=== PATIENT | female | born 1940 | race Caucasian/White ===

== ENCOUNTER 2017-07-13 20:29 | Emergency (ER) | payer MEDICARE, BC ==
--- NOTE | 2017-07-15 07:58 | ER ---
DATE SEEN: 07/13/2017 TIME SEEN: 2030 hours. CHIEF COMPLAINT: Sore left eye. HISTORY OF PRESENT ILLNESS: A 77-year-old female who noted the left eye to have blood. This happened suddenly today when she felt like her eye had goop or matter, and when she looked in the mirror, she saw blood, especially on the left side. No trauma and no recent straining. Denies any double vision, headaches, nausea, vomiting. She had cataract surgery about 2 months ago on that eye. REVIEW OF SYSTEMS: All other systems were negative. PAST MEDICAL HISTORY: Hypertension. MEDICATIONS: She takes Cozaar and aspirin twice a week. PHYSICAL EXAMINATION: VITAL SIGNS: She has normal vital signs. HEENT: Head is normal size. Left eye with conjunctival hemorrhage noted on the inner aspect. Pupils are equal and reactive, and extraocular movements are intact. NEUROLOGIC: Exam is normal, and mental status is alert. Visual acuity 20/50 bilaterally. IMPRESSION: Subconjunctival hemorrhage. PLAN: Refresh tears, observation, and follow up with Optometry on Saturday at the [facility]. /[id number] [place]/MODL
== END 2017-07-13 21:02 | disposition home or self-care (01) ==
LOC: FB.ED 20:29
DX: H11.32 Conjunctival hemorrhage, left eye (principal); I10 Essential (primary) hypertension; Z79.82 Long term (current) use of aspirin; Z79.899 Other long term (current) drug therapy; Z98.42 Cataract extraction status, left eye
CPT/HCPCS: 99283

== ENCOUNTER 2021-04-19 11:19 | Day surgery (SDC) | payer MEDICARE, BC ==
[2021-04-19] MEDS ORDERED: Propofol 200 MG/20 ML SDV IV ONE (11:20)
[2021-04-19] MEDS ORDERED: Sodium Chloride 0.9% 10 ML Syringe FLUSH PRN (11:45)
[2021-04-19] MEDS: Lactated Ringers 1,000 ML IV SCH (11:59)
[2021-04-19 13:53] VITALS: BP 138/69; PULSE 64
== END 2021-04-19 13:38 | disposition home or self-care (01) ==
LOC: FB.SDS 11:19
PROVIDERS: ATTEND Surgery
DX: K57.30 Diverticulosis of large intestine without perforation or abscess without bleeding (principal); K59.00 Constipation, unspecified; I12.9 Hypertensive chronic kidney disease with stage 1 through stage 4 chronic kidney disease, or unspecified chronic kidney disease; N18.30 Chronic kidney disease, stage 3 unspecified; E78.00 Pure hypercholesterolemia, unspecified; K21.9 Gastro-esophageal reflux disease without esophagitis; Z79.899 Other long term (current) drug therapy; Z85.048 Personal history of other malignant neoplasm of rectum, rectosigmoid junction, and anus; Z98.0 Intestinal bypass and anastomosis status; Z79.890 Hormone replacement therapy; Z87.891 Personal history of nicotine dependence
CPT/HCPCS: 00811-QZ; J2704; J7120

== ENCOUNTER 2023-07-07 16:09 | Emergency (ER) | payer MEDICARE, BC ==
[2023-07-07] MEDS: Ondansetron 4 MG Tab.DIS PO ONE (16:30)
[2023-07-07 17:02] LABS: INFLUENZA A NAA NEGATIVE (NEGATIVE); INFLUENZA B NAA NEGATIVE (NEGATIVE); RESPIRATORY SYNCYTIAL VIR NAA NEGATIVE (NEGATIVE)
[2023-07-07 17:20] LABS: CORONAVIRUS COVID-19 NAA POSITIVE (NEGATIVE)
[2023-07-07] MEDS: Dexamethasone 2 MG Tab PO ONE (17:31)
== END 2023-07-07 17:54 | disposition home or self-care (01) ==
LOC: FB.ED 16:09
DX: U07.1 COVID-19 (principal); E78.00 Pure hypercholesterolemia, unspecified; K21.9 Gastro-esophageal reflux disease without esophagitis; I12.9 Hypertensive chronic kidney disease with stage 1 through stage 4 chronic kidney disease, or unspecified chronic kidney disease; N18.9 Chronic kidney disease, unspecified; E03.9 Hypothyroidism, unspecified; Z79.899 Other long term (current) drug therapy; Z86.19 Personal history of other infectious and parasitic diseases
CPT/HCPCS: 0241U; 87651-QW; 99283; J8540; Q0162